=== PATIENT | female | born 1985 | race Caucasian/White ===

== ENCOUNTER → 2021-03-26 11:32 | Outpatient (CLI) | payer OTHER, SELFPAY ==
[2021-03-26 19:09] LABS: Add Manual Diff / Slide Review NO; Basophils Absolute Auto 0 /uL (0-100); Basophils Percent Auto 0.7 % (0-2); Eosinophils Absolute Auto 200 /uL (0-450); Eosinophils Percent Auto 2.8 % (2-4); Hematocrit 41.8 % (36-46); Hemoglobin 13.9 g/dL (12.0-16.0); Lymphocytes Absolute Auto 2000 /uL (1100-4500); Lymphocytes Percent Auto 36.8 % (25-40); Mean Corpuscular HGB Conc 33.3 % (30-36); Mean Corpuscular Hemoglobin 32.3 PG (26-34); Mean Corpuscular Volume 96.9 fL (80-100); Monocytes Absolute Auto 500 /uL (0-900); Monocytes Percent Auto 9.7 % (3-14); Neutrophils Absolute Auto 2700 /uL (1500-7000); Platelet Count 262 X10^3/uL (150-400); Red Blood Cell Count 4.32 X10^6/uL (4.0-5.2); Red Cell Distribution Width 13.7 % (11.6-14.8); White Blood Cell Count 5.4 X10^3/uL (4.5-11.0)
[2021-03-26 19:35] LABS: Alanine Aminotransferase 41 IU/L (<35); Albumin 4.7 g/dL (3.5-5.0); Albumin Globulin Ratio 1.6 (1.0-2.8); Alkaline Phosphatase 54 U/L (38-126); Aspartate Aminotransferase 38 IU/L (14-36); BUN Creatinine Ratio 17.4 (6-22); Bilirubin Total 0.4 mg/dL (0.2-1.3); Blood Urea Nitrogen 12 mg/dL (7-17); Carbon Dioxide 29 mmol/L (22-32); Chloride 102 mmol/L (98-107); Estimated Glomerular Filt Rate > 60.0 mL/min (>60); Globulin 2.9 g/dL (1.7-4.1); Glucose 97 mg/dL (70-100); HEMOLYSIS < 15 (0-50); Potassium 4.3 mmol/L (3.4-5.1); Sodium 139 mmol/L (137-145); Total Protein 7.6 g/dL (6.3-8.2)
[2021-03-26 19:49] LABS: TSH w/ Reflex to FT4 3.38 uIU/mL (0.47-4.68)
== END ==
PROVIDERS: Family Provider Family Medicine; PCP Physician Assistant; Referring Provider Physician Assistant; Visit Provider Physician Assistant
DX: F41.9 Anxiety disorder, unspecified (principal); F32.A Depression, unspecified; F90.9 Attention-deficit hyperactivity disorder, unspecified type; Z79.899 Other long term (current) drug therapy
CPT/HCPCS: 80053; 84443; 85025

== ENCOUNTER 2021-04-20 16:32 | Emergency (ER) | payer OTHER, SELFPAY ==
[2021-04-20] VITALS (7 sets, daily range): BP systolic 106–143; BP diastolic 60–77; PULSE 94–105; RESP 16; TEMP 36.4; O2SAT 96–99; BMI 27.4
--- NOTE | 2021-04-20 18:26 | ED.GENADULT ---
HPI - General Adult General Chief complaint: Abdominal Pain Stated complaint: FEVER/RT SIDE ABDOMEN PAIN Time Seen by Provider: 04/20/21 18:26 Source: patient Mode of arrival: Ambulatory History of Present Illness HPI narrative: 35-year-old woman being treated for ADD with dextroamphetamine and uses control pills presents with 72 hours of fevers up to 102 and never getting below 100 with appropriate Tylenol and ibuprofen dosing. Right flank/abdominal pain. She also notes that she has had a unusual white discharge from her vagina for the past 5 days. It is not painful or itchy but does have a different odor. She has never experienced anything similar and has never had a yeast infection. She notes no significant dysuria or diarrhea. She has no chest pain, cough, headache, palpitations, lower extremity edema. Related Data Home Medications Medication Instructions Recorded Confirmed albuterol sulfate 90 mcg/actuation 1 inh INHALATION Q4-5H PRN g 09/09/20 03/26/21 aerosol inhaler fluticasone propionate 110 1 puff INHALATION BID 12/10/20 03/26/21 mcg/actuation HFA aerosol inhaler Previous Rx's Medication Instructions Recorded dextroamphetamine-amphetamine 10 10 mg PO BID #60 tab 04/15/21 mg tablet doxycycline hyclate 100 mg capsule 100 mg PO BID #28 cap 04/20/21 metronidazole 500 mg tablet 500 mg PO BID #28 tab 04/20/21 Allergies Allergy/AdvReac Type Severity Reaction Status Date / Time HYDROCODONE Allergy Unknown Uncoded 03/26/21 11:18 Review of Systems Review of Systems Narrative: Remainder of complete review of systems is otherwise unremarkable except for that included in the HPI. Patient History Medical History Acne (~1998) Asthma (~2017) Seasonal allergic rhinitis (~2014) Surgical History Anesthesia History of hand surgery (~2012) History of removal of cyst (~2007) Social History Smoking Status: Former smoker Smoking Status: Former smoker alcohol intake frequency: 3 or more drinks per day Substance Use Type: does not use Exam Narrative Exam Narrative: General: Healthy appearing, severe pain in the right middle abdominal to right flank area without rebound or guarding. Able to give a complete and coherent history. Well-nourished well-developed HEENT: Moist mucous membranes, normal sclera with reactive pupils, Neck: No JVD, supple Respiratory: Lungs are clear to auscultation, no wheezing no rales no rhonchi. Full and symmetrical air movement Cardiac: Regular rate and rhythm no murmurs no bruits Abdomen: Soft, nontender, good bowel tones, no flank pain Pelvic exam: Normal external genitalia without vesicles papules, discharge or significant erythema. She has some minor cervical motion tenderness and it is unclear whether this is actually true cervical motion tenderness or whether that is irritating something in the flank or: Area that is the true area of concern. She does not have adnexal l tenderness, IUD string is palpable Skin: Warm and dry, no rashes Neurologic: Grossly neurologically intact with no obvious asymmetries or abnormalities Extremities: No trauma, well perfused Psych: Cooperative, appropriate insight and affect Initial Vital Signs Initial Vital Signs: Vital Signs Temperature 97.6 F 04/20/21 16:35 Pulse Rate 94 H 04/20/21 16:35 Respiratory Rate 16 04/20/21 16:35 Blood Pressure 143/77 H 04/20/21 16:35 Pulse Oximetry 99 04/20/21 16:35 Course Orders Ordered: ED Orders 04/20/21 19:13 Urine Culture Stat Urine Microscopic Stat 04/20/21 19:20 Wet Prep Tric BV Stefani Stat 04/20/21 19:36 CT abdomen pelvis w con Stat 04/20/21 20:06 Chlamydia Gonorrhea PCR -URINE Stat Discontinued Medications Hydromorphone HCl (Hydromorphone 0.5 Mg Inj) 0.5 mg IV Q15MIN PRN PRN Reason: Pain, Last Admin: 04/20/21 20:14 Dose: 0.5 mg Documented by: CALIXTO Sodium Chloride (Normal Saline 0.9%) 1,000 mls @ 1,000 mls/hr IV BOLUS ONE Stop: 04/20/21 20:35 Last Infusion: 04/20/21 21:29 Dose: 0 mls/hr Documented by: Admin: 04/20/21 20:14 Dose: 1,000 mls/hr Documented by: CALIXTO Ceftriaxone Sodium 500 mg/ (Dextrose) 50 mls @ 100 mls/hr IV NOW ONE Stop: 04/20/21 22:50 Last Infusion: 04/20/21 23:36 Dose: 0 mls/hr Documented by: Admin: 04/20/21 23:23 Dose: 100 mls/hr Documented by: ERA Ketorolac Tromethamine (Ketorolac 30 Mg/Ml Vial) 15 mg IV NOW ONE Stop: 04/20/21 22:50 Last Admin: 04/20/21 23:07 Dose: 15 mg Documented by: GWEN Magnesium Citrate (Magnesium Citrate 300 Ml Solution) 300 ml PO NOW ONE Stop: 04/20/21 22:50 Last Admin: 04/20/21 23:07 Dose: 300 ml Documented by: GWEN Ondansetron HCl (Ondansetron 4 Mg/2 Ml Inj) 4 mg IV NOW ONE Stop: 04/20/21 19:37 Last Admin: 04/20/21 20:14 Dose: 4 mg Documented by: CALIXTO Vital Signs Vital signs: Vital Signs - 8 hr 04/20/21 20:28 04/20/21 20:30 04/20/21 21:00 Pulse Rate 102 H 105 H 102 H Blood Pressure Pulse Oximetry 97 98 99 04/20/21 21:27 04/20/21 21:30 04/20/21 23:01 Pulse Rate 103 H 101 H 95 H Blood Pressure 108/60 106/65 120/63 Pulse Oximetry 96 97 97 Medical Decision Making Lab Data Result diagrams: 04/20/21 18:15 04/20/21 18:15 Labs: Lab Results 04/20/21 04/20/21 04/20/21 Range/Units 18:15 18:15 19:13 WBC 9.8 (4.5-11.0) X10^3/uL RBC 4.34 (4.0-5.2) X10^6/uL Hgb 14.4 (12.0-16.0) g/dL Hct 41.5 (36-46) % MCV 95.7 (80-100) fL MCH 33.2 (26-34) PG MCHC 34.7 (30-36) % RDW 13.5 (11.6-14.8) % Plt Count 258 (150-400) X10^3/uL Neut % (Auto) 74.5 (50-75) % Lymph % (Auto) 10.8 L (25-40) % Dickens % (Auto) 13.7 (3-14) % Eos % (Auto) 0.7 L (2-4) % Baso % (Auto) 0.3 (0-2) % Neut # (Auto) 7300 H (2244-2444) /uL Lymph # (Auto) 1100 (2521-5478) /uL Dickens # (Auto) 1300 H (0-900) /uL Eos # (Auto) 100 (0-450) /uL Baso # (Auto) 0 (0-100) /uL Sodium 137 (137-145) mmol/L Potassium 4.3 (3.4-5.1) mmol/L Chloride 103 (98-107) mmol/L Carbon Dioxide 26 (22-32) mmol/L BUN 8 (7-17) mg/dL Creatinine 0.69 (0.52-1.04) mg/dL Estimated GFR > 60.0 (>60) mL/min BUN/Creatinine Ratio 11.6 (6-22) Glucose 96 (70-100) mg/dL Calcium 9.5 (8.4-10.2) mg/dL Total Bilirubin 0.4 (0.2-1.3) mg/dL AST 51 H (14-36) IU/L ALT 47 H (<35) IU/L Alkaline Phosphatase 74 (38-126) U/L Total Protein 7.8 (6.3-8.2) g/dL Albumin 4.5 (3.5-5.0) g/dL Globulin 3.3 (1.7-4.1) g/dL Albumin/Globulin Ratio 1.4 (1.0-2.8) Lipase 37 (23-300) U/L Urine RBC 1-5/hpf (0-5/HPF) Urine WBC 5-10/hpf H (0-5/HPF) Ur Squamous Epith Cells 1-5 /hpf (0-5/HPF) Urine Bacteria Few (2-10) H (None) Ur Culture Indicated? Specimen cultured Ur Chlamydia DNA (PCR) N gonorrhoeae DNA (PCR) 04/20/21 Range/Units 20:06 WBC (4.5-11.0) X10^3/uL RBC (4.0-5.2) X10^6/uL Hgb (12.0-16.0) g/dL Hct (36-46) % MCV (80-100) fL MCH (26-34) PG MCHC (30-36) % RDW (11.6-14.8) % Plt Count (150-400) X10^3/uL Neut % (Auto) (50-75) % Lymph % (Auto) (25-40) % Dickens % (Auto) (3-14) % Eos % (Auto) (2-4) % Baso % (Auto) (0-2) % Neut # (Auto) (1775-0988) /uL Lymph # (Auto) (2819-8975) /uL Dickens # (Auto) (0-900) /uL Eos # (Auto) (0-450) /uL Baso # (Auto) (0-100) /uL Sodium (137-145) mmol/L Potassium (3.4-5.1) mmol/L Chloride (98-107) mmol/L Carbon Dioxide (22-32) mmol/L BUN (7-17) mg/dL Creatinine (0.52-1.04) mg/dL Estimated GFR (>60) mL/min BUN/Creatinine Ratio (6-22) Glucose (70-100) mg/dL Calcium (8.4-10.2) mg/dL Total Bilirubin (0.2-1.3) mg/dL AST (14-36) IU/L ALT (<35) IU/L Alkaline Phosphatase (38-126) U/L Total Protein (6.3-8.2) g/dL Albumin (3.5-5.0) g/dL Globulin (1.7-4.1) g/dL Albumin/Globulin Ratio (1.0-2.8) Lipase (23-300) U/L Urine RBC (0-5/HPF) Urine WBC (0-5/HPF) Ur Squamous Epith Cells (0-5/HPF) Urine Bacteria (None) Ur Culture Indicated? Ur Chlamydia DNA (PCR) Not detected N gonorrhoeae DNA (PCR) Not detected Point of Care Testing Test Results Negative Urine Dip Bedside Urine Glucose Negative Bedside Urine Bilirubin - Negative Bedside Urine Ketone - Negative Urine Specific [place] 1.010 Bedside Urine Occult Blood +/- Bedside Urine pH 7.5 Bedside Urine Protein +/- 15 Bedside Urine Urobilinogen +/- 1mg Bedside Urine Nitrite - Negative Bedside Urine Leukocytes - Negative Esterase Point of care testing: Point of Care Testing Test Results Negative Urine Dip Bedside Urine Glucose Negative Bedside Urine Bilirubin - Negative Bedside Urine Ketone - Negative Urine Specific [place] 1.010 Bedside Urine Occult Blood +/- Bedside Urine pH 7.5 Bedside Urine Protein +/- 15 Bedside Urine Urobilinogen +/- 1mg Bedside Urine Nitrite - Negative Bedside Urine Leukocytes - Negative Esterase Imaging Data CT scan - abdomen/pelvis: Radiologist's Impression: FINDINGS:? Image quality:? Excellent.? ? Lung bases:? Unremarkable. Heart:? No significant findings. ? ABDOMEN: Liver:? Uniform attenuation.? No mass Gallbladder:? Normal.? ? Biliary ducts:? Nondilated. Pancreas:? No peripancreatic inflammatory change or pancreatic ductal dilatation Spleen:? Normal size and appearance. Adrenal Glands:? No nodule or mass. Kidneys and Ureters:? No hydroureteronephrosis or perinephric fat stranding.? No urinary tract calculus. ? Stomach and Bowel:? No abnormally dilated or thickened loop of bowel.? No pericolonic or mesenteric inflammatory changes.? Appendix is normal. Peritoneum:? No abnormal intraperitoneal fluid.? No free air.? ? Ventral Wall:? No ventral hernia. Abdominal Nodes:? No retroperitoneal or mesenteric adenopathy by size criteria.? Vessels:? Aorta and inferior vena cava are normal in size.? ? PELVIS: Pelvic Organs:? IUD in place.? Otherwise unremarkable uterus and ovaries.? Small volume free pelvic fluid adjacent to the ovaries. Bladder:? Unremarkable.? ? Pelvic Nodes: No enlarged lymph nodes.? Miscellaneous:? No inguinal hernia. ? Bones:? Unremarkable.? IMPRESSION:? No findings to explain symptoms. ? ? Dictated by: James Pang M.D. on 04/20/2021 at 20:19 ? ? MDM Narrative Medical decision making narrative: 35-year-old woman with right-sided abdominal pain. No evidence of colitis, appendicitis, gallbladder liver issues, no hydronephrosis or nephrolithiasis. No evidence of ovarian cyst, ruptured cyst or ovarian torsion. Possibility of a bladder infection remains with mildly abnormal urinalysis. Possibility of developing PID with mild cervical motion tenderness. Gonorrhea and chlamydia are both unremarkable. Trichomonas, bacterial vaginosis and yeast vaginitis tests are all currently pending. CT scan is reassuring. At this time will treat for mild outpatient pelvic inflammatory disease with the understanding that the ceftriaxone and doxycycline combination will also likely be effective for any urinary tract infection appreciated. Recommendation currently is 500 mg of ceftriaxone, 14 days of doxycycline 100 mg b.i.d. and metronidazole 500 mg b.i.d.. She still having significant abdominal pain that is right-sided but not localized and I suspect his as much related to gas and stool and: Distension as much as anything else. At this point I believe we have ruled out any surgical abnormalities and it is safe for her to go home. Discharge Plan Departure Patient Disposition: Home Clinical Impression: Dysuria, Abdominal pain, Constipation, Acute pelvic inflammatory disease (PID) Instructions: DI for Pelvic Inflammatory Disease (PID), DI for Urinary Tract Infection (UTI) Activity Restrictions/Additional Instructions: Thank you for coming in today I am concerned that you are developing a bladder infection and with the mild tenderness to your uterus and cervix the possibility of pelvic inflammatory disease is there. Your gonorrhea and chlamydia tests were negative today in your urine has been cultured. I am going to treat with antibiotics for both of these infections. You were given a dose of ceftriaxone in the emergency department 3 your IV. You need to finish 2 weeks of doxycycline 100 mg twice a day and Flagyl 500 mg twice a day. These prescriptions were electronically transmitted to [facility] on or cast Will also send you home with a bottle of magnesium citrate. I would recommend that you drink this and see if cleaning out your colon and getting rid of all of the gas helps with the severe pain that you are experiencing. You do not have appendicitis, a gallbladder problem, kidney stones, pyelonephritis or kidney infection, there is no sign of a bowel obstruction or any surgical abnormalities to explain the abdominal pain that you currently are experiencing. Please complete the prescriptions as above. Using 400 mg of ibuprofen (2 [id number] pills) and 1 Tylenol every 6 hours can be very helpful in controlling pain. I wish you the best Prescriptions: New doxycycline hyclate 100 mg capsule 100 mg PO BID Qty: 28 0RF metronidazole 500 mg tablet 500 mg PO BID Qty: 28 0RF No Action dextroamphetamine-amphetamine 10 mg tablet 10 mg PO BID Qty: 60 0RF Rx Instructions: administer doses at least 4-6 hours apart albuterol sulfate 90 mcg/actuation HFA aerosol inhaler 1 inh inhalation Q4-5H PRN (Reason: shortness of breath or wheezing) 0RF fluticasone propionate 110 mcg/actuation HFA aerosol inhaler 1 puff inhalation BID 0RF Referrals: Callie Engle PA-C [Primary Care Provider] -
[2021-04-20 18:38] LABS: Alanine Aminotransferase 47 IU/L (<35); Albumin 4.5 g/dL (3.5-5.0); Albumin Globulin Ratio 1.4 (1.0-2.8); Alkaline Phosphatase 74 U/L (38-126); Aspartate Aminotransferase 51 IU/L (14-36); BUN Creatinine Ratio 11.6 (6-22); Bilirubin Total 0.4 mg/dL (0.2-1.3); Blood Urea Nitrogen 8 mg/dL (7-17); Calcium 9.5 mg/dL (8.4-10.2); Carbon Dioxide 26 mmol/L (22-32); Chloride 103 mmol/L (98-107); Estimated Glomerular Filt Rate > 60.0 mL/min (>60); Globulin 3.3 g/dL (1.7-4.1); Glucose 96 mg/dL (70-100); HEMOLYSIS 26 (0-50); Lipase 37 U/L (23-300); Potassium 4.3 mmol/L (3.4-5.1); Sodium 137 mmol/L (137-145); Total Protein 7.8 g/dL (6.3-8.2)
[2021-04-20 18:40] LABS: Add Manual Diff / Slide Review NO; Basophils Absolute Auto 0 /uL (0-100); Basophils Percent Auto 0.3 % (0-2); Eosinophils Absolute Auto 100 /uL (0-450); Eosinophils Percent Auto 0.7 % (2-4); Hematocrit 41.5 % (36-46); Hemoglobin 14.4 g/dL (12.0-16.0); Lymphocytes Absolute Auto 1100 /uL (1100-4500); Lymphocytes Percent Auto 10.8 % (25-40); Mean Corpuscular HGB Conc 34.7 % (30-36); Mean Corpuscular Hemoglobin 33.2 PG (26-34); Mean Corpuscular Volume 95.7 fL (80-100); Monocytes Absolute Auto 1300 /uL (0-900); Monocytes Percent Auto 13.7 % (3-14); Neutrophils Absolute Auto 7300 /uL (1500-7000); Neutrophils Percent Auto 74.5 % (50-75); Platelet Count 258 X10^3/uL (150-400); Red Blood Cell Count 4.34 X10^6/uL (4.0-5.2); Red Cell Distribution Width 13.5 % (11.6-14.8); White Blood Cell Count 9.8 X10^3/uL (4.5-11.0)
[2021-04-20 19:29] LABS: Bacteria Urine Few (2-10); Culture Indicated Urine Specimen Cultured; RBC Urine 1-5/HPF (0-5/HPF); Squamous Epithelial Cell Urine 1-5 /HPF (0-5/HPF); WBC Urine 5-10/HPF (0-5/HPF)
--- NOTE | 2021-04-20 19:36 | DI.CT.S_ITS ---
PROCEDURE: CT ABDOMEN PELVIS W CON INDICATIONS: LLQ, flank pain with fever TECHNIQUE: After the administration of intravenous contrast, axial sections acquired from the lung bases to the pubic symphysis. Coronal and sagittal reformats were performed. For radiation dose reduction, the following was used: automated exposure control, adjustment of mA and/or kV according to patient size. COMPARISON: None. FINDINGS: Image quality: Excellent. Lung bases: Unremarkable. Heart: No significant findings. ABDOMEN: Liver: Uniform attenuation. No mass Gallbladder: Normal. Biliary ducts: Nondilated. Pancreas: No peripancreatic inflammatory change or pancreatic ductal dilatation Spleen: Normal size and appearance. Adrenal Glands: No nodule or mass. Kidneys and Ureters: No hydroureteronephrosis or perinephric fat stranding. No urinary tract calculus. Stomach and Bowel: No abnormally dilated or thickened loop of bowel. No pericolonic or mesenteric inflammatory changes. Appendix is normal. Peritoneum: No abnormal intraperitoneal fluid. No free air. Ventral Wall: No ventral hernia. Abdominal Nodes: No retroperitoneal or mesenteric adenopathy by size criteria. Vessels: Aorta and inferior vena cava are normal in size. PELVIS: Pelvic Organs: IUD in place. Otherwise unremarkable uterus and ovaries. Small volume free pelvic fluid adjacent to the ovaries. Bladder: Unremarkable. Pelvic Nodes: No enlarged lymph nodes. Miscellaneous: No inguinal hernia. Bones: Unremarkable. IMPRESSION: No findings to explain symptoms. Dictated by: James Pang M.D. on 04/20/2021 at 20:19 Approved by: James Pang M.D. on 04/20/2021 at 20:24
--- NOTE | 2021-04-20 20:06 | PC.NURSE ---
Pt reporting that R hand went numb like novocaine after CT with contrast. Dr Cortés notified.
[2021-04-20] MEDS: SODIUM CHLORIDE 0.9% 1,000 ML 1000 ML IV (20:14)
[2021-04-20] MEDS: HYDROMORPHONE 0.5 MG INJ IV (20:14)
[2021-04-20] MEDS: ONDANSETRON 4 MG/2 ML INJ IV (20:14)
[2021-04-20 21:57] LABS: Urine N gonorrhoeae NOT DETECTED
[2021-04-20 21:58] LABS: Urine Chlamydia NOT DETECTED
[2021-04-20] MEDS: MAGNESIUM CITRATE 300 ML SOLUTION PO (23:07)
[2021-04-20] MEDS: KETOROLAC 30 MG/ML VIAL 15 MG IV (23:07)
[2021-04-20] MEDS: cefTRIAXone 500 MG in DEXTROSE 5 % IN WATER 50 ML 100 ML IV (23:23)
== END 2021-04-20 23:40 | disposition home or self-care (01) ==
PROVIDERS: Emergency Medicine; Emergency Provider Emergency Medicine; Family Provider Family Medicine; PCP Physician Assistant
DX: N73.9 Female pelvic inflammatory disease, unspecified (principal); K59.00 Constipation, unspecified
CPT/HCPCS: 36415; 74177; 80053; 81003; 81015; 81025; 83690; 85025; 87086; 87210; 87491; 87591; 96361; 96374; 96375; 99284; J0696; J1170; J1885; J2405; Q9967

== ENCOUNTER → 2022-08-18 08:13 | Outpatient (CLI) | payer OTHER, MEDICAID, SELFPAY ==
[2022-08-18 20:02] LABS: Add Manual Diff / Slide Review NO; Basophils Absolute Auto 0 /uL (0-100); Basophils Percent Auto 0.9 % (0-2); Eosinophils Absolute Auto 200 /uL (0-450); Eosinophils Percent Auto 3.4 % (2-4); Hematocrit 42.6 % (36-46); Hemoglobin 14.6 g/dL (12.0-16.0); Lymphocytes Absolute Auto 2000 /uL (1100-4500); Lymphocytes Percent Auto 35.8 % (25-40); Mean Corpuscular HGB Conc 34.3 % (30-36); Mean Corpuscular Hemoglobin 32.9 PG (26-34); Mean Corpuscular Volume 96.1 fL (80-100); Monocytes Absolute Auto 700 /uL (0-900); Neutrophils Absolute Auto 2600 /uL (1500-7000); Neutrophils Percent Auto 46.9 % (50-75); Platelet Count 290 X10^3/uL (150-400); Red Blood Cell Count 4.43 X10^6/uL (4.0-5.2); White Blood Cell Count 5.5 X10^3/uL (4.5-11.0)
[2022-08-18 20:26] LABS: Alanine Aminotransferase 63 IU/L (<35); Albumin 4.4 g/dL (3.5-5.0); Albumin Globulin Ratio 1.4 (1.0-2.8); Alkaline Phosphatase 65 U/L (38-126); Aspartate Aminotransferase 44 IU/L (14-36); BUN Creatinine Ratio 11.2 (6-22); Bilirubin Total 0.3 mg/dL (0.2-1.3); Blood Urea Nitrogen 10 mg/dL (7-17); Calcium 9.5 mg/dL (8.4-10.2); Carbon Dioxide 28 mmol/L (22-32); Chloride 100 mmol/L (98-107); Estimated Glomerular Filt Rate > 60 mL/min (>60); Globulin 3.1 g/dL (1.7-4.1); Glucose 84 mg/dL (70-100); HEMOLYSIS < 15 (0-50); Sodium 136 mmol/L (137-145); Total Protein 7.5 g/dL (6.3-8.2)
[2022-08-18 20:50] LABS: Thyroid Stimulating Hormone 3.47 uIU/mL (0.47-4.68)
[2022-08-20 00:07] LABS: HBsAg Screen Negative (Negative); Hepatitis A Antibody IgM Negative (Negative); Hepatitis B Core Antibody IgM Negative (Negative); Hepatitis C Antibody Non Reactive (Non Reactive)
== END ==
PROVIDERS: Family Provider Family Medicine; PCP Family Medicine; Visit Provider Family Medicine
DX: R00.0 Tachycardia, unspecified (principal); R55 Syncope and collapse; R79.89 Other specified abnormal findings of blood chemistry
CPT/HCPCS: 80053; 80074; 84443; 85025

== ENCOUNTER → 2022-09-07 13:03 | Outpatient (CLI) | payer OTHER, MEDICAID, SELFPAY ==
[2022-09-07 19:44] LABS: Alanine Aminotransferase 35 IU/L (<35); Albumin 4.6 g/dL (3.5-5.0); Albumin Globulin Ratio 1.7 (1.0-2.8); Alkaline Phosphatase 64 U/L (38-126); Aspartate Aminotransferase 31 IU/L (14-36); Bilirubin Total 0.3 mg/dL (0.2-1.3); Cholesterol 222 mg/dL (140-199); Globulin 2.7 g/dL (1.7-4.1); HDL Cholesterol 69 mg/dL (40-60); HEMOLYSIS < 15 (0-50); LDL Cholesterol Calculated 129 mg/dL (<100); Total Protein 7.3 g/dL (6.3-8.2); Triglycerides 119 mg/dL (35-150)
[2022-09-08 13:38] LABS: HEMOLYSIS < 15 (0-50); Iron 80 ug/dL (37-170)
[2022-09-08 14:07] LABS: Percent Iron Saturation 21 % (15-50); Total Iron Binding Capacity 387 ug/dL (265-497); Transferrin 292 mg/dL (206-381)
[2022-09-09 21:22] LABS: Deamidated Gliadin Ab IgA 3 units (0-19); Deamidated Gliadin Ab IgG 2 units (0-19); Immunoglobulin A,Qn 193 mg/dL (87-352); t-Transglutaminase IgA <2 U/mL (0-3)
[2022-09-10 11:36] LABS: Hepatitis B Surf Ab Qualitativ Non Reactive (.)
[2022-09-10 15:51] LABS: ANA Screen, IFA Negative (.)
[2022-09-11 16:57] LABS: Albumin 4.5 g/dL (2.9-4.4); Alpha-1-Globulin 0.1 g/dL (0.0-0.4); Alpha-2-Globulin 0.7 g/dL (0.4-1.0); Protein, Total 7.5 g/dL (6.0-8.5)
[2022-09-13 10:38] LABS: Smooth Muscle Antibody 5 Units (0-19)
== END ==
PROVIDERS: Family Provider Family Medicine; PCP Family Medicine; Visit Provider Family Medicine
DX: R79.89 Other specified abnormal findings of blood chemistry (principal)
CPT/HCPCS: 80061; 80076; 82784; 83516; 83540; 83550; 84155; 84165; 86038; 86706

== ENCOUNTER → 2024-01-07 10:18 | Outpatient (CLI) | payer OTHER, MEDICAID, SELFPAY ==
[2024-01-07 18:36] LABS: Add Manual Diff / Slide Review NO; Basophils Absolute Auto 0 /uL (0-100); Basophils Percent Auto 0.9 % (0-2); Eosinophils Absolute Auto 200 /uL (0-450); Eosinophils Percent Auto 3.9 % (2-4); Hematocrit 40.6 % (36-46); Hemoglobin 13.7 g/dL (12.0-16.0); Lymphocytes Absolute Auto 2500 /uL (1100-4500); Lymphocytes Percent Auto 44.3 % (25-40); Mean Corpuscular HGB Conc 33.7 % (30-36); Mean Corpuscular Hemoglobin 32.7 PG (26-34); Mean Corpuscular Volume 97.1 fL (80-100); Monocytes Absolute Auto 600 /uL (0-900); Monocytes Percent Auto 10.7 % (3-14); Neutrophils Absolute Auto 2300 /uL (1500-7000); Neutrophils Percent Auto 40.2 % (50-75); Platelet Count 320 X10^3/uL (150-400); Red Blood Cell Count 4.18 X10^6/uL (4.0-5.2); Red Cell Distribution Width 13.9 % (11.6-14.8); White Blood Cell Count 5.7 X10^3/uL (4.5-11.0)
[2024-01-07 18:48] LABS: Blood Urea Nitrogen 13 mg/dL (7-17); Carbon Dioxide 21 mmol/L (22-32); Chloride 99 mmol/L (98-107); Cholesterol 257 mg/dL (140-199); Estimated Glomerular Filt Rate > 60 mL/min (>60); Glucose 93 mg/dL (70-100); HDL Cholesterol 87 mg/dL (40-60); HEMOLYSIS 41 (0-50); LDL Cholesterol Calculated 154 mg/dL (<100); Potassium 4.5 mmol/L (3.4-5.1); Sodium 132 mmol/L (137-145); Triglycerides 81 mg/dL (35-150)
[2024-01-07 19:28] LABS: Hemoglobin A1C% w Est Avg Glu 5.2 % (4.0-6.0)
== END ==
PROVIDERS: Family Provider Family Medicine; PCP Family Medicine; Visit Provider Family Medicine
DX: G47.30 Sleep apnea, unspecified (principal); R40.0 Somnolence; E78.2 Mixed hyperlipidemia; R79.89 Other specified abnormal findings of blood chemistry; Z68.34 Body mass index [BMI] 34.0-34.9, adult
CPT/HCPCS: 80048; 80061; 83036; 85025

== ENCOUNTER → 2024-04-27 12:48 | Outpatient (CLI) | payer OTHER, SELFPAY | PROVIDERS: Family Provider Family Medicine; PCP Family Medicine; Visit Provider Physician Assistant | DX: N89.8 Other specified noninflammatory disorders of vagina (principal) | CPT/HCPCS: 87491; 87591; 87661; 87798; 87801 ==

== ENCOUNTER → 2024-12-06 09:46 | Outpatient (CLI) | payer OTHER, SELFPAY ==
[2024-12-06 19:27] LABS: Add Manual Diff / Slide Review NO; Hematocrit 42.1 % (36-46); Hemoglobin 14.1 g/dL (12.0-16.0); Lymphocytes Absolute Auto 2000 /uL (1100-4500); Mean Corpuscular HGB Conc 33.4 % (30-36); Mean Corpuscular Hemoglobin 33.0 PG (26-34); Mean Corpuscular Volume 98.6 fL (80-100); Platelet Count 246 X10^3/uL (150-400)
[2024-12-06 19:31] LABS: Alanine Aminotransferase 96 IU/L (<35); Albumin 4.5 g/dL (3.5-5.0); Albumin Globulin Ratio 1.6 (1.0-2.8); Alkaline Phosphatase 63 U/L (38-126); Blood Urea Nitrogen 10 mg/dL (7-17); Calcium 9.4 mg/dL (8.4-10.2); Carbon Dioxide 27 mmol/L (22-32); Chloride 99 mmol/L (98-107); Cholesterol 229 mg/dL (140-199); Estimated Glomerular Filt Rate > 60 mL/min (>60); Globulin 2.8 g/dL (1.7-4.1); Glucose 91 mg/dL (70-99); HDL Cholesterol 73 mg/dL (40-60); HEMOLYSIS < 15 (0-50); Potassium 4.4 mmol/L (3.4-5.1); Sodium 133 mmol/L (137-145); Total Protein 7.3 g/dL (6.3-8.2); Triglycerides 72 mg/dL (35-150)
== END ==
PROVIDERS: Family Provider Family Medicine; PCP Family Medicine; Visit Provider Family Medicine
DX: Z78.9 Other specified health status (principal); E78.2 Mixed hyperlipidemia; R79.89 Other specified abnormal findings of blood chemistry; F32.A Depression, unspecified; R40.0 Somnolence; Z68.34 Body mass index [BMI] 34.0-34.9, adult; F90.1 Attention-deficit hyperactivity disorder, predominantly hyperactive type
CPT/HCPCS: 80053; 80061; 85025